=== PATIENT | female | born 1995 | race Caucasian/White ===

== ENCOUNTER → 2017-03-12 | Outpatient (CLI) | payer MEDICAID | END | disposition home or self-care (01) | LOC: CFH 15:35 | PROVIDERS: ATTEND Internal Medicine | DX: M79.641 Pain in right hand (principal); M79.642 Pain in left hand; M25.551 Pain in right hip; M79.671 Pain in right foot; M79.672 Pain in left foot | CPT/HCPCS: 73523; 77077 ==

== ENCOUNTER → 2018-02-20 | Outpatient (CLI) | payer MEDICAID | END | disposition home or self-care (01) | LOC: CFH 09:06 | PROVIDERS: ATTEND Family Medicine | DX: R10.9 Unspecified abdominal pain (principal) | CPT/HCPCS: 76700 ==

== ENCOUNTER 2019-01-28 10:35 | Day surgery (SDC) | payer MEDICAID ==
[2019-01-26 09:05] LABS: ALANINE AMINOTRANSFERASE 24 U/L (12-78); ALBUMIN 3.4 g/dL (3.4-5.0); CALCIUM 8.6 mg/dL (8.5-10.1)
[2019-01-26 09:08] LABS: ALKALINE PHOSPHATASE 89 U/L (45-117); ANION GAP 5 mmol/L (5-15); BILIRUBIN,TOTAL 0.3 mg/dL (0.2-1.0); CHLORIDE 112 mmol/L (98-107); TOTAL PROTEIN 7.5 g/dL (6.4-8.2)
[~2019-01-28] VITALS: Ht 167.6 cm; Wt 66.0 kg
[~2019-01-28 10:35] MED LIST: ATEN50TA41 PO; BUPIVACAINE/PF 0.25% ONE; DESO1TAB6 PO; DIGO125T PO; EPINEPHRINE 1 MG/ML, 1ML ONE; RIZA10TA20 PO; TIZA4TAB PO; TOPI25TA8 PO
[2019-01-28 11:34] VITALS: BP 110/75
[2019-01-28] MEDS ORDERED: LACTATED RINGERS 1,000 ML IV SCH (11:37)
[2019-01-28] MEDS ORDERED: MIDAZOLAM 1 MG/ML, 2ML ONE (11:46)
[2019-01-28] MEDS ORDERED: FENTANYL PF 250 MCG/5ML ONE (11:47)
[2019-01-28] MEDS ORDERED: ONDANSETRON 2MG/ML, 2ML ONE ×2 (11:49)
[2019-01-28] MEDS ORDERED: CEFAZOLIN 1,000 MG ONE (11:49)
[2019-01-28] MEDS ORDERED: DEXAMETHASONE 4 MG/ML, 1ML ONE ×2 (11:49)
[2019-01-28] MEDS ORDERED: MEPERIDINE/PF 25MG/0.5ML IVPush PRN (12:00)
[2019-01-28] MEDS ORDERED: OXYcodone 5 MG/5 ML ORAL.SOL UDC PO PRN (12:00)
[2019-01-28] MEDS ORDERED: MIDAZOLAM 1 MG/ML, 2ML IV PRN (12:00)
[2019-01-28] MEDS ORDERED: hydrALAzine 20 MG/ML, 1ML IV PRN (12:00)
[2019-01-28] MEDS ORDERED: HYDROmorphone 2 MG/ML, 1ML IVPush PRN (12:00)
[2019-01-28] MEDS ORDERED: PROMETHAZINE 12.5 MG SUPP PR PRN (12:00)
[2019-01-28] MEDS ORDERED: PROMETHAZINE 25 MG/ML, 1ML IV PRN (12:00)
[2019-01-28] MEDS ORDERED: MORPHINE SULFATE 4 MG/ML, 1ML IVPush PRN (12:00)
[2019-01-28] MEDS ORDERED: FENTANYL PF 100 MCG/2ML IV PRN (12:00)
[2019-01-28] MEDS ORDERED: HALOPERIDOL 5 MG/ML IV PRN (12:00)
[2019-01-28] MEDS ORDERED: ONDANSETRON ODT 8 MG PO PRN (12:00)
[2019-01-28] MEDS ORDERED: ALBUTEROL SULFATE 2.5 MG/3 ML NPPB PRN (12:00)
[2019-01-28] MEDS ORDERED: ONDANSETRON 2MG/ML, 2ML IV PRN (12:00)
[2019-01-28] MEDS ORDERED: EPHEDRINE 50 MG/ML, 1ML IVPush PRN (12:00)
[2019-01-28] MEDS ORDERED: LABETALOL 5MG/ML, 20ML IV PRN (12:00)
[2019-01-28] MEDS ORDERED: LIDOCAINE-MPF 1%, 2ML INFIL ONE (12:00)
[2019-01-28] MEDS ORDERED: DIAZEPAM 5 MG/ML, 2ML IVPush PRN (12:00)
[2019-01-28 12:03] LABS: HCG UR SG 1.022 (1.003-1.030)
[2019-01-28] MEDS ORDERED: DIPHENHYDRAMINE 50 MG/ML, 1ML ONE (12:06)
[2019-01-28] MEDS ORDERED: SUCCINYLCHOLINE 20 MG/ML, 10ML ONE (12:06)
[2019-01-28] MEDS ORDERED: ROCURONIUM 10 MG/ML,10ML ONE (12:06)
[2019-01-28] MEDS ORDERED: PROPOFOL 10 MG/ML, 20ML ONE (12:06)
[2019-01-28] MEDS ORDERED: NEOSTIGMINE 1 MG/ML, 10ML ONE (12:06)
[2019-01-28] MEDS ORDERED: GLYCOPYRROLATE 0.4 MG/2 ML, 2ML ONE ×2 (13:01)
[2019-01-28] MEDS ORDERED: KETOROLAC 30 MG/1 ML ONE (13:03)
[2019-01-28] MEDS ORDERED: OXYcodone 5 MG/5 ML ORAL.SOL UDC ONE (13:29)
[2019-01-28] MEDS ORDERED: FENTANYL PF 100 MCG/2ML ONE (13:29)
== END 2019-01-28 15:30 | disposition home or self-care (01) ==
LOC: OUT 10:35
PROVIDERS: ATTEND Specialist
DX: N80.1 Endometriosis of ovary (principal); N80.3 Endometriosis of pelvic peritoneum; N94.10 Unspecified dyspareunia; J45.909 Unspecified asthma, uncomplicated; L40.50 Arthropathic psoriasis, unspecified; E78.2 Mixed hyperlipidemia; G43.909 Migraine, unspecified, not intractable, without status migrainosus; Z79.3 Long term (current) use of hormonal contraceptives; Z79.899 Other long term (current) drug therapy; Z88.6 Allergy status to analgesic agent; Z90.49 Acquired absence of other specified parts of digestive tract; Z98.890 Other specified postprocedural states
CPT/HCPCS: 36415; 58662; 80053; 81025; J0171; J0330; J0690; J1100; J1200; J1885; J2250; J2405; J2704; J2710; J3010; J3490; J7120

== ENCOUNTER 2020-07-25 18:31 | Emergency (ER) | payer MEDICAID ==
[~2020-07-25] VITALS: Ht 167.6 cm; Wt 70.0 kg
[~2020-07-25 18:31] MED LIST changes: -BUPIVACAINE/PF 0.25% ONE; -DIGO125T PO; +DIGO125T85 PO; -EPINEPHRINE 1 MG/ML, 1ML ONE; +ESTR1TAB15 PO; +ETAN50PE INJ; +IBUP-1222 PO; +OXYC-302 PO; -TIZA4TAB PO; +TIZA4TAB2 PO
--- NOTE | 2020-07-25 19:43 | NUR ---
BATTERY HAND: PT. TO ROOM FROM LOBBY AT THIS TIME.
[2020-07-25 20:49] VITALS: BP 112/70
--- NOTE | 2020-07-25 20:49 | NUR ---
Patient/Caregiver given discharge instructions and they have confirmed that they understand the instructions. Patient ambulatory with steady gait.
== END 2020-07-25 20:52 | disposition home or self-care (01) ==
LOC: ED 20:25
DX: B34.9 Viral infection, unspecified (principal); Z20.828 Contact with and (suspected) exposure to other viral communicable diseases; R06.02 Shortness of breath
CPT/HCPCS: 71045; 87635; 99284